=== PATIENT | male | born 1970 | race Two or more races ===

== ENCOUNTER 2018-02-16 15:26 | Emergency (ER) | payer SELFPAY ==
[~2018-02-16] VITALS: Ht 172.7 cm; Wt 83.0 kg
[2018-02-16 15:30] VITALS: BP 146/112
[2018-02-16] MEDS ORDERED: GENTAMICIN 0.1% CREAM 15 GM TUBE ONE (15:53)
[2018-02-16] MEDS ORDERED: TDAP [DIPH/PERTUSSIS/TET] 0.5 ML VIAL IM ONE (15:53)
[2018-02-16] MEDS: TDAP [DIPH/PERTUSSIS/TET] 0.5 ML VIAL IM ONE (16:19)
[2018-02-16] MEDS: GENTAMICIN 0.1% OINT 15 GM TUBE TP ONE (16:20)
== END 2018-02-16 16:21 | disposition home or self-care (01) ==
LOC: ER 15:28
DX: T20.20XA Burn of second degree of head, face, and neck, unspecified site, initial encounter (principal); T22.132A Burn of first degree of left upper arm, initial encounter; X08.8XXA Exposure to other specified smoke, fire and flames, initial encounter; Y93.G3 Activity, cooking and baking; Y92.89 Other specified places as the place of occurrence of the external cause; Y99.0 Civilian activity done for income or pay
CPT/HCPCS: 90715; A4606; Z7610